=== PATIENT | female | born 1965 | race Caucasian/White ===

== ENCOUNTER 2016-04-12 20:24 | Emergency (ER) | payer SELFPAY ==
--- NOTE | 2016-04-12 21:31 | ER Document Report ---
ED Medical Screen (RME) - General Stated Complaint: RIGHT SIDE FACE PAIN Mode of Arrival: Ambulatory Information source: Patient Notes: Patient complains of right-sided jaw and neck tenderness and swelling. Symptoms started yesterday. Patient complains of difficulty with opening her mouth. hx: Frequent UTIs I have greeted and performed a rapid initial assessment of this patient. A comprehensive ED assessment and evaluation of the patient, analysis of test results and completion of the medical decision making process will be conducted by additional ED providers. TRAVEL OUTSIDE OF THE [place] IN LAST 30 DAYS: No - Related Data Allergies/Adverse Reactions: Sulfa (Sulfonamide Antibiotics) Allergy (Verified 06/24/14 20:23) Past Medical History - Past Medical History Cardiac Medical History: Reports: Hx Hypercholesterolemia, Hx Hypertension GI Medical History: Reports: Hx Gastroesophageal Reflux Disease Past Surgical History: Reports: Hx Hysterectomy, Hx Orthopedic Surgery - Immunizations Hx Diphtheria, Pertussis, Tetanus Vaccination: Yes Physical Exam - Vital signs Vitals: Temp Pulse Resp BP 97.8 F 91 18 111/86 H 04/12/16 21:20 04/12/16 21:20 04/12/16 21:20 04/12/16 21:20 - HEENT Teeth diagram: 1 - Tender swollen area, palpable nodule Course - Vital Signs Vital signs: Temp Pulse Resp BP Pulse Ox 97.8 F 91 18 111/86 H 04/12/16 21:20 04/12/16 21:20 04/12/16 21:20 04/12/16 21:20
[2016-04-13] MEDS ORDERED: HYDROCODONE/ACETAMINOPHEN 5-325 MG 6 TAB/DSPK PO PRN (00:16)
[2016-04-13] MEDS ORDERED: AMOXICILLIN TR/POT CLAVULANATE 500-125 MG TAB PO ONE (00:16)
--- NOTE | 2016-04-13 00:18 | ER Document Report ---
ED General - General Chief Complaint: Jaw Pain Stated Complaint: RIGHT SIDE FACE PAIN Mode of Arrival: Ambulatory Notes: Patient is a 51-year-old female with a past medical history of hypertension who presents with 24 hours of progressively worsening right-sided jaw pain and some mild facial swelling. Describes the pain in her jaws a severe, constant, throbbing pain. Worsened by eating or opening her mouth. Nothing improves the pain and she has been trying naproxen and ibuprofen at home. No history of similar symptoms in the past. Denies any associated fever or constitutional symptoms. She has not seen her primary care physician or dentist regarding today's concerns. Denies any difficulty breathing or swallowing. TRAVEL OUTSIDE OF THE [place] IN LAST 30 DAYS: No - Related Data Allergies/Adverse Reactions: Sulfa (Sulfonamide Antibiotics) Allergy (Verified 06/24/14 20:23) Past Medical History - General Information source: Patient - Social History Smoking Status: Current Every Day Smoker Frequency of alcohol use: None Drug Abuse: None Family History: Reviewed & Not Pertinent Patient has suicidal ideation: No Patient has homicidal ideation: No - Past Medical History Cardiac Medical History: Reports: Hx Hypercholesterolemia, Hx Hypertension Renal/ Medical History: Denies: Hx Peritoneal Dialysis GI Medical History: Reports: Hx Gastroesophageal Reflux Disease Past Surgical History: Reports: Hx Hysterectomy, Hx Orthopedic Surgery - Immunizations Hx Diphtheria, Pertussis, Tetanus Vaccination: Yes Review of Systems - Review of Systems Notes: Constitutional: Negative for fever. HENT: Positive for right-sided facial swelling Eyes: Negative for visual changes. Cardiovascular: Negative for chest pain. Respiratory: Negative for shortness of breath. Gastrointestinal: Negative for abdominal pain, vomiting or diarrhea. Genitourinary: Negative for dysuria. Musculoskeletal: Negative for back pain. Skin: Negative for rash. Neurological: Negative for headaches, weakness or numbness. 10 point ROS negative except as marked above and in HPI. Physical Exam - Vital signs Vitals: Temp Pulse Resp BP 97.8 F 91 18 111/86 H 04/12/16 21:20 04/12/16 21:20 04/12/16 21:20 04/12/16 21:20 Interpretation: Normal Notes: PHYSICAL EXAMINATION: GENERAL: Well-appearing, well-nourished and in no acute distress. HEAD: Atraumatic, normocephalic. EYES: Pupils equal round and reactive to light, extraocular movements intact, sclera anicteric, conjunctiva are normal. ENT: nares patent, oropharynx clear without exudates. Moist mucous membranes. Poor dentition. Mild right buccal mucosal swelling NECK: Normal range of motion, there is right-sided submandibular lymphadenopathy LUNGS: Breath sounds clear to auscultation bilaterally and equal. No wheezes rales or rhonchi. HEART: Regular rate and rhythm without murmurs ABDOMEN: Soft, nontender, normoactive bowel sounds. No guarding, no rebound. No masses appreciated. EXTREMITIES: Normal range of motion, no pitting or edema. No cyanosis. NEUROLOGICAL: No focal neurological deficits. Moves all extremities spontaneously and on command. PSYCH: Normal mood, normal affect. SKIN: Warm, Dry, normal turgor, no rashes or lesions noted. Course - Re-evaluation Re-evalutation: 04/13/16 00:18 Presentation is most consistent with likely an infected tooth. Patient does have some mild right-sided facial swelling and submandibular and anterior cervical lymphadenopathy. Airway is patent. Vitals within normal limits. Patient is able swallow without any difficulty. Patient will be started on antibiotics and a limited number of pain medications. I've instructed to follow -up with dentistry as earliest ability for definitive management. At this time will discharge with return precautions and follow-up recommendations. Verbal discharge instructions given a the bedside and opportunity for questions given. Medication warnings reviewed. Patient is in agreement with this plan and has verbalized understanding of return precautions and the need for primary care follow-up in the next 24-72 hours. - Vital Signs Vital signs: Temp Pulse Resp BP Pulse Ox 98.3 F 68 20 122/78 98 04/13/16 00:44 04/13/16 00:44 04/13/16 00:44 04/13/16 00:44 04/13/16 00:44 Discharge - Discharge Clinical Impression: Right facial pain Condition: Good Disposition: HOME, SELF-CARE Additional Instructions: You were seen for facial swelling and this is likely due to a dental infection. It is very important that you follow-up with a dentist for definitive care. Please return if you develop fever greater than 101, worsening of the swelling in your face, vomiting, difficulty breathing or swallowing, or any other symptoms that are concerning to you. For pain you should take ibuprofen 600 mg every 6 hours as needed. Take the antibiotics as prescribed. Use the [place] you were sent home with for severe pain that is not controlled by ibuprofen. Prescriptions: Hydrocodone/Acetaminophen [[place] 5-325 mg Tablet] 1 tab PO Q4HP PRN #10 tablet PRN Reason: Amox Tr/Potassium Clavulanate [Augmentin 875-125 Tablet] 1 tab PO BID 10 Days Forms: Return to Work Referrals: DAREK ARTHUR PA-C [Primary Care Provider] - Follow up in 3-5 days
[2016-04-13 00:46] VITALS: BP 122/78
== END 2016-04-13 00:44 | disposition home or self-care (01) ==
LOC: ER 20:24
DX: R51 Headache (principal); R68.84 Jaw pain; F17.210 Nicotine dependence, cigarettes, uncomplicated; I10 Essential (primary) hypertension
CPT/HCPCS: 99283

== ENCOUNTER 2017-01-28 10:58 | Emergency (ER) | payer SELFPAY ==
[2017-01-28] MEDS ORDERED: RINGERS SOLUTION,LACTATED 1,000 ML IV ONE (11:08)
--- NOTE | 2017-01-28 11:09 | ER Document Report ---
ED General Pain - General Chief Complaint: Pain Stated Complaint: HAND/FOOT PAIN Time Seen by Provider: 01/28/17 11:07 Notes: She also had nausea vomiting last Thursday. Loose stools last week and. TRAVEL OUTSIDE OF THE [place] IN LAST 30 DAYS: No - HPI Notes: 51 years old female with a history of on and off low potassium, had a week ago episode of nausea and vomiting which subsided again last Thursday had a another episode of nausea and vomiting for a few hours. Currently has no nausea vomiting abdominal pain or cramps. Denies any diarrhea or constipation now. But developed cramps over the upper limbs and therefore concerned that her potassium might be low, presented to the ED. Denied any fever chills or other constitutional symptoms. - Related Data Allergies/Adverse Reactions: Sulfa (Sulfonamide Antibiotics) Allergy (Verified 01/28/17 11:00) Past Medical History - General Information source: Patient Cannot obtain history due to: Other - Hypokalemia, GERD - Social History Smoking Status: Current Some Day Smoker Cigarette use (# per day): Yes Smoking Education Provided: Yes Frequency of alcohol use: Rare Drug Abuse: Marijuana Lives with: Family Family History: Reviewed & Not Pertinent. denies: None, Arthritis, CAD, COPD, CVA, DM, Hyperlipidemia, Hypertension, Malignancy, Thyroid Disfunction, Other - Past Medical History Cardiac Medical History: Reports: Hx Hypercholesterolemia, Hx Hypertension Pulmonary Medical History: Denies: None, Hx Asthma, Hx Bronchitis, Hx COPD, Hx Pneumonia, Hx Intubation , Hx Respiratory Failure, Hx Sleep Apnea, Hx Tuberculosis, Other Renal/ Medical History: Denies: Hx Peritoneal Dialysis GI Medical History: Reports: Hx Gastroesophageal Reflux Disease Past Surgical History: Reports: Hx Hysterectomy, Hx Orthopedic Surgery - Immunizations Hx Diphtheria, Pertussis, Tetanus Vaccination: Yes Review of Systems - Review of Systems -: Yes ROS unobtainable due to patient's medical condition Constitutional: denies: No symptoms reported, See HPI, Chills, Diaphoresis, Fever, Malaise, Weakness, Other, Weight gain, Weight loss, Recent illness EENT: denies: No symptoms reported, See HPI, Eye pain, Eye discharge, Blurred vision, Tearing, Double vision, Ear pain, Ear discharge, Nose pain, Nose congestion, Nose discharge, Sinus pressure, Sinus discharge, Throat pain, Difficulty swallowing, Throat swelling, Mouth pain, Mouth swelling, Dental problem, Vertigo, Other Cardiovascular: denies: No symptoms reported, See HPI, Chest pain, Palpitations , Heart racing, Orthopnea, Dyspnea, Syncope, Dizziness, Lightheaded, Edema, Other, Paroxysmal Nocturnal Dysp Respiratory: denies: No symptoms reported, See HPI, Cough, Hurts to breathe, Hemoptysis, Short of breath, Sputum, Stridor, Wheezing, Other Genitourinary: denies: No symptoms reported, See HPI, Burning, Dysuria, Discharge, Frequency, Flank pain, Hematuria, Incontinence, Pain, Urgency, Retention, Other Female Genitourinary: denies: No symptoms reported, See HPI, Last menstrual period, , Post menopausal, Heavy/abnormal periods, Irregular period, Vaginal bleeding, Vaginal discharge, Vaginal odor, Painful intercourse, Other Musculoskeletal: denies: No symptoms reported, See HPI, Back pain, Gout, Joint pain, Joint swelling, Muscle pain, Muscle stiffness, Neck pain, Deformity, Leg swelling, Ankle swelling, Other Physical Exam - Vital signs Vitals: Resp 18 01/28/17 10:59 Interpretation: Normal - Notes Notes: General exam: Alert oriented 3, appears well, not in any acute distress, body habitus------. HEENT: Normocephalic atraumatic pupils were equal reactive to light extraocular muscles were within normal range. Neck is supple no JVD no lymphadenopathy. Oral mucosa-not erythematous, no lesions noted no tonsillar enlargement. Chest no lesions, nontraumatic, nontender. No deformity Lungs: Bilaterally clear breath sounds no rales or wheezing, no adventitial sounds, no dullness on percussion. Cardiovascular system: Normal S1-S2 no murmurs, no gallop. Regular rhythm. No peripheral edema over the lower extremities. Gastrointestinal: Normal appearance, positive bowel sounds in all 4 quadrants, no Hepatosplenomegaly, no obvious masses, no obvious abdominal bruit. No horseshoe dullness. Inguinal region: No masses or obvious inguinal hernia noted Genitourinary: Rectal exam: Course - Vital Signs Vital signs: Temp Pulse Resp BP Pulse Ox 98.2 F 78 18 140/88 H 96 01/28/17 11:01 01/28/17 11:01 01/28/17 11:01 01/28/17 11:01 01/28/17 11:01 - Laboratory Result Diagrams: 01/28/17 11:32 01/28/17 11:32 Laboratory results interpreted by me: 01/28/17 01/28/17 11:32 11:32 Hct 35.5 L Seg Neutrophils % 41.0 L Lymphocytes % 46.4 H Potassium 3.1 L Carbon Dioxide 34 H BUN 5 L Calcium 7.7 L - Transfer of Care Notes: 01/28/17 11:20 Given lactated Ringer IV 01/28/17 13:10 Patient was given IV lactated Ringer as well as 40 mEq of potassium chloride. With clinical improvement she is being discharged home. Discharge - Discharge Clinical Impression: Hypokalemia, Dehydration, moderate Disposition: HOME, SELF-CARE Instructions: Hypokalemia ([facility]), Dehydration ([facility]) Prescriptions: Potassium Chloride 20 meq PO BID #10 tablet.er
[2017-01-28 11:41] LABS: ABSOLUTE BASOPHILS # (AUTO) 0.1 10^3/uL (0.0-0.2); ABSOLUTE EOSINOPHILS # (AUTO) 0.2 10^3/uL (0.0-0.6); ABSOLUTE LYMPHOCYTES (AUTO) 3.4 10^3/uL (0.5-4.7); ABSOLUTE MONOCYTES (AUTO) 0.6 10^3/uL (0.1-1.4); BASOPHILS % (AUTO) 1.6 % (0-2); EOSINOPHILS % (AUTO) 2.4 % (0-6); HEMATOCRIT 35.5 % (36.0-47.0); HEMOGLOBIN 12.6 g/dL (12.0-15.5); HGB HCT DIFFERENCE 2.3; LYMPHOCYTES % (AUTO) 46.4 % (13-45); MEAN CORPUSCULAR HEMOGLOBIN 31.4 pg (27.0-33.4); MEAN CORPUSCULAR HGB CONC 35.4 g/dL (32.0-36.0); MEAN CORPUSCULAR VOLUME 89 fl (80-97); MONOCYTES % (AUTO) 8.6 % (3-13); RED BLOOD COUNT 4.01 10^6/uL (3.72-5.28); RED CELL DISTRIBUTION WIDTH 13.2 % (11.5-14.0); WHITE BLOOD COUNT 7.4 10^3/uL (4.0-10.5)
[2017-01-28 11:54] LABS: ALANINE AMINOTRANSFERASE 24 U/L (9-52); ALBUMIN 3.9 g/dL (3.5-5.0); ALKALINE PHOSPHATASE 62 U/L (38-126); ANION GAP 10 (5-19); ASPARTATE AMINO TRANSFERASE 17 U/L (14-36); BILIRUBIN,DIRECT 0.3 mg/dL (0.0-0.4); BILIRUBIN,TOTAL 0.3 mg/dL (0.2-1.3); BLOOD UREA NITROGEN 5 mg/dL (7-20); CALCIUM 7.7 mg/dL (8.4-10.2); CARBON DIOXIDE 34 mmol/L (22-30); CHLORIDE 99 mmol/L (98-107); CREATININE RESULT 0.64 mg/dL (0.52-1.25); GLUCOSE 97 mg/dL (75-110); POTASSIUM 3.1 mmol/L (3.6-5.0); TOTAL PROTEIN 6.6 g/dL (6.3-8.2)
[2017-01-28] MEDS ORDERED: POTASSIUM CHLORIDE 10 MEQ TABLET.SA PO ONE (12:09)
[2017-01-28 14:31] VITALS: BP 126/80
== END 2017-01-28 14:29 | disposition home or self-care (01) ==
LOC: ER 10:58
DX: E87.6 Hypokalemia (principal); E86.0 Dehydration; R11.2 Nausea with vomiting, unspecified; R19.7 Diarrhea, unspecified
CPT/HCPCS: 99284; 96360; 36415; 85025; 80053; J7120

== ENCOUNTER 2018-07-04 16:32 | Emergency (ER) | payer SELFPAY ==
[2018-07-04] MEDS ORDERED: IPRATROPIUM/ALBUTEROL 0.5-2.5 MG/3 ML AMPUL NEB ONE (16:46)
--- NOTE | 2018-07-04 16:49 | ER Document Report ---
ED Medical Screen (RME) - General Chief Complaint: Abdominal Pain Stated Complaint: NAUSEA Time Seen by Provider: 07/04/18 16:43 Primary Care Provider: DAREK ARTHUR PA-C [Primary Care Provider] - Follow up as needed TRAVEL OUTSIDE OF THE [place] IN LAST 30 DAYS: No - HPI Notes: 07/04/18 16:47 Patient is a 53-year-old female with a history of GERD and tobacco abuse who presents complaining of epigastric/right upper quadrant abdominal pain with nausea, no vomiting. Symptoms began yesterday. Patient states that she is also had a semi-productive cough over the past 2 weeks. Pain does not radiate. She is is otherwise able to eat and drink without difficulty, but does have a decreased p.o. intake. She is urinating normally and having normal bowel movements the last one this morning. Denies [place], fever, neck pain, URI, CP, SOB, or rash. I have treated and performed a rapid initial assessment of this patient. A comprehensive ED assessment and evaluation of the patient, analysis of test results and completion of medical decision making process will be conducted by additional ED providers. PHYSICAL EXAMINATION: GENERAL: Well-appearing, well-nourished and in no acute distress. A&Ox4. Answers questions appropriately. LUNGS: Breath sounds clear to auscultation bilaterally and equal. No wheezes rales or rhonchi. HEART: Regular rate and rhythm without murmurs, rubs, gallops. ABDOMEN: Soft, nondistended abdomen. No guarding, no rebound. Normal bowel sounds present. No CVA tenderness bilaterally. + mild epigastric/RUQ tenderness (cannot elicit thorough abd exam w/o table, however). Extremities: No cyanosis, clubbing, or edema b/l. NEUROLOGICAL: Normal speech, normal gait. PSYCH: Normal mood, normal affect. - Related Data Allergies/Adverse Reactions: Sulfa (Sulfonamide Antibiotics) Allergy (Verified 07/04/18 16:33) Past Medical History - Past Medical History Cardiac Medical History: Reports: Hx Hypercholesterolemia, Hx Hypertension Pulmonary Medical History: Denies: Hx Asthma, Hx Bronchitis, Hx COPD, Hx Pneumonia, Hx Intubation, Hx Respiratory Failure, Hx Sleep Apnea, Hx Tuberculosis Renal/ Medical History: Denies: Hx Peritoneal Dialysis GI Medical History: Reports: Hx Gastroesophageal Reflux Disease Past Surgical History: Reports: Hx Hysterectomy, Hx Orthopedic Surgery - Immunizations Hx Diphtheria, Pertussis, Tetanus Vaccination: Yes Physical Exam - Vital signs Vitals: Temp Pulse Resp BP Pulse Ox 98.5 F 89 18 134/74 H 96 07/04/18 16:36 07/04/18 16:36 07/04/18 16:36 07/04/18 16:36 07/04/18 16:36 Course - Vital Signs Vital signs: Temp Pulse Resp BP Pulse Ox 98.5 F 89 18 134/74 H 96 07/04/18 16:36 07/04/18 16:36 07/04/18 16:36 07/04/18 16:36 07/04/18 16:36 Doctor's Discharge - Discharge Referrals: DAREK ARTHUR PA-C [Primary Care Provider] - Follow up as needed
[2018-07-04 17:18] LABS: ABSOLUTE LYMPHOCYTES (AUTO) 1.8 10^3/uL (0.5-4.7); ABSOLUTE MONOCYTES (AUTO) 0.9 10^3/uL (0.1-1.4); ABSOLUTE NEUT (AUTO) 5.9 10^3/uL (1.7-8.2); BASOPHILS % (AUTO) 0.2 % (0-2); EOSINOPHILS % (AUTO) 0.3 % (0-6); HEMATOCRIT 42.6 % (36.0-47.0); HEMOGLOBIN 14.5 g/dL (12.0-15.5); LYMPHOCYTES % (AUTO) 20.5 % (13-45); MEAN CORPUSCULAR VOLUME 91 fl (80-97); MONOCYTES % (AUTO) 10.6 % (3-13); PLATELET COUNT 426 10^3/uL (150-450); RED BLOOD COUNT 4.68 10^6/uL (3.72-5.28); RED CELL DISTRIBUTION WIDTH 13.1 % (11.5-14.0); SEGMENTED NEUTROPHILS % (AUTO) 68.4 % (42-78); TOTAL CELLS COUNTED % (AUTO) 100 %; WHITE BLOOD COUNT 8.6 10^3/uL (4.0-10.5)
[2018-07-04 17:34] LABS: ALANINE AMINOTRANSFERASE 19 U/L (9-52); ALBUMIN 4.8 g/dL (3.5-5.0); ALKALINE PHOSPHATASE 63 U/L (38-126); ANION GAP 14 (5-19); ASPARTATE AMINO TRANSFERASE 17 U/L (14-36); BILIRUBIN,DIRECT 0.3 mg/dL (0.0-0.4); BILIRUBIN,TOTAL 0.4 mg/dL (0.2-1.3); BLOOD UREA NITROGEN 15 mg/dL (7-20); CALCIUM 9.8 mg/dL (8.4-10.2); CARBON DIOXIDE 26 mmol/L (22-30); CHLORIDE 100 mmol/L (98-107); GLUCOSE 113 mg/dL (75-110); LIPASE 62.1 U/L (23-300); POTASSIUM 3.2 mmol/L (3.6-5.0); SODIUM 140.1 mmol/L (137-145); TOTAL PROTEIN 8.4 g/dL (6.3-8.2)
--- NOTE | 2018-07-04 17:46 | RADIOLOGY REPORT (SQ) ---
EXAM DESCRIPTION: U/S ABDOMEN LIMITED W/O DOP COMPLETED DATE/TIME: 07/04/2018 5:27 pm REASON FOR STUDY: RUQ/epigastric pain COMPARISON: None. TECHNIQUE: Dynamic and static grayscale images acquired of the abdomen and recorded on PACS. Additio nal selected color Doppler and spectral images recorded. LIMITATIONS: None. FINDINGS: PANCREAS: No masses. Visualized pancreatic duct normal caliber. LIVER: No masses. Echotexture normal. LIVER VASCULATURE: Normal directional flow of the main portal vein and hepatic veins. GALLBLADDER: No stones. Normal wall thickness. No pericholecystic fluid. ULTRASOUND-DETECTED DOMINGUEZ'S SIGN: Negative. INTRAHEPATIC DUCTS AND COMMON DUCT: CBD and intrahepatic ducts normal caliber. No filling defects. INFERIOR VENA CAVA: Normal flow. AORTA: No aneurysm. RIGHT KIDNEY: Echogenic stone with shadowing in the upper pole measuring 7 mm. Slight renal pelvic dilatation. PERITONEAL AND RIGHT PLEURAL SPACE: No ascites or effusions. OTHER: No other significant findings. IMPRESSION: Right nephrolithiasis. Minimal right hydronephrosis. Otherwise unremarkable right uppe r quadrant ultrasound. TECHNICAL DOCUMENTATION: JOB ID: [id number] [employer]- All Rights Reserved Reading location - IP/workstation name: [email or web address]
[2018-07-04 17:59] LABS: APPEARANCE,URINE SLIGHTLY-CLOUDY; BILIRUBIN,URINE NEGATIVE (NEGATIVE); COLOR,URINE YELLOW; GLUCOSE, URINE NEGATIVE (NEGATIVE); KETONES,URINE NEGATIVE (NEGATIVE); LEUKOCYTE ESTERASE,URINE TRACE (NEGATIVE); NITRITE,URINE NEGATIVE (NEGATIVE); PROTEIN,URINE NEGATIVE (NEGATIVE); UROBILINOGEN,URINE NEGATIVE mg/dL (<2.0)
--- NOTE | 2018-07-04 18:09 | RADIOLOGY REPORT (SQ) ---
EXAM DESCRIPTION: CHEST 2 VIEWS COMPLETED DATE/TIME: 07/04/2018 5:44 pm REASON FOR STUDY: cough, wheeze COMPARISON: 2014. NUMBER OF VIEWS: Two view. TECHNIQUE: Frontal and lateral radiographic views of the chest acquired. LIMITATIONS: None. FINDINGS: LUNGS AND PLEURA: No opacities, masses or pneumothorax. No pleural effusion. Attenuated bl ood vessels and flattened josefina-diaphragms. MEDIASTINUM AND HILAR STRUCTURES: No masses. No contour abnormalities. HEART AND VASCULAR STRUCTURES: Heart normal in size and contour. No evidence for failure. BONES: No acute findings. HARDWARE: None in the chest. OTHER: No other significant finding. IMPRESSION: COPD. NO ACUTE RADIOGRAPHIC FINDING IN THE CHEST. TECHNICAL DOCUMENTATION: JOB ID: [id number] [employer]- All Rights Reserved Reading location - IP/workstation name: [email or web address]
[2018-07-04] MEDS ORDERED: POTASSIUM CHLORIDE 10 MEQ CAPSULE.ER PO ONE (18:51)
--- NOTE | 2018-07-04 19:15 | ER Document Report ---
ED General - General Chief Complaint: Abdominal Pain Stated Complaint: NAUSEA Time Seen by Provider: 07/04/18 16:43 Primary Care Provider: DAREK ARTHUR PA-C [Primary Care Provider] - Follow up as needed Notes: Patient is a 53-year-old female with a past medical history of hypokalemia, COPD, presents with 2 to 3 weeks of general fatigue. Patient states that her symptoms started approximately 3 weeks ago after she developed a sore throat and subsequently developed a cough and symptoms consistent with an upper respiratory infection by her history. She states that the fatigue is her only concern at this time. States that she feels so tired that she can hardly get dressed in the morning. States that she is struggling to continue to perform her duties at work due to her level of fatigue. This is a severe symptom by her report and nothing seems to improve or worsen the symptoms. States she is sleeping appr opriately at night. She denies any history of similar symptoms in the past. She has not seen her primary care doctor regarding today's concerns. She denies adamantly any shortness of breath, chest pain, vomiting, pain in the arms, jaw or back. She does complain of some intermittent stabbing pains in her epigastric that come and go none present currently. These are mild, stabbing pains that last for several seconds and then resolve. She states that she has had approximately 6 pounds of weight loss in 6 months. She does currently smoke. TRAVEL OUTSIDE OF THE [place] IN LAST 30 DAYS: No - Related Data Allergies/Adverse Reactions: Sulfa (Sulfonamide Antibiotics) Allergy (Verified 07/04/18 16:33) Past Medical History - General Information source: Patient - Social History Smoking Status: Current Every Day Smoker Frequency of alcohol use: None Drug Abuse: None Lives with: Family Family History: Reviewed & Not Pertinent. denies: None, Arthritis, CAD, COPD, CVA, DM, Hyperlipidemia, Hypertension, Malignancy, Thyroid Disfunction, Other Patient has suicidal ideation: No Patient has homicidal ideation: No - Past Medical History Cardiac Medical History: Reports: Hx Hypercholesterolemia, Hx Hypertension Pulmonary Medical History: Denies: Hx Asthma, Hx Bronchitis, Hx COPD, Hx Pneumonia, Hx Intubation, Hx Respiratory Failure, Hx Sleep Apnea, Hx Tuberculosis Renal/ Medical History: Denies: Hx Peritoneal Dialysis GI Medical History: Reports: Hx Gastroesophageal Reflux Disease Past Surgical History: Reports: Hx Hysterectomy, Hx Orthopedic Surgery - Immunizations Hx Diphtheria, Pertussis, Tetanus Vaccination: Yes Review of Systems - Review of Systems Notes: Constitutional: Negative for fever. HENT: Negative for sore throat. Eyes: Negative for visual changes. Cardiovascular: Negative for chest pain. Respiratory: Negative for shortness of breath. Gastrointestinal: Positive for intermittent abdominal pain Genitourinary: Negative for dysuria. Musculoskeletal: Negative for back pain. Skin: Negative for rash. Neurological: Negative for headaches, weakness or numbness. 10 point ROS negative except as marked above and in HPI. Physical Exam - Vital signs Vitals: Temp Pulse Resp BP Pulse Ox 98.5 F 89 18 134/74 H 96 07/04/18 16:36 07/04/18 16:36 07/04/18 16:36 07/04/18 16:36 07/04/18 16:36 Interpretation: Normal Notes: PHYSICAL EXAMINATION: GENERAL: Well-appearing, well-nourished and in no acute distress. HEAD: Atraumatic, normocephalic. EYES: Pupils equal round and reactive to light, extraocular movements intact, sclera anicteric, conjunctiva are normal. ENT: nares patent, oropharynx clear without exudates. Moist mucous membranes. NECK: Normal range of motion, supple without lymphadenopathy LUNGS: Breath sounds clear to auscultation bilaterally and equal. No wheezes rales or rhonchi. HEART: Regular rate and rhythm without murmurs ABDOMEN: Soft, nontender, normoactive bowel sounds. No guarding, no rebound. No masses appreciated. EXTREMITIES: Normal range of motion, no pitting or edema. No cyanosis. NEUROLOGICAL: No focal neurological deficits. Moves all extremities spontaneously and on command. PSYCH: Normal mood, normal affect. SKIN: Warm, Dry, normal turgor, no rashes or lesions noted. Course - Re-evaluation Re-evalutation: 07/04/18 18:54 Patient presents with general fatigue and no other specific complaints other than a previous history of sore throat. Considerations include mononucleosis, undiagnosed occult malignancy. Labs unremarkable with exception of mild, chronic hypokalemia. 40 mg of oral potassium has been initiated in the emergency department and I have advised dietary supplementation at home. CT scan of the abdomen and pelvis was obtained for better clarification of possible obstructive nephrolithiasis on the right and to exclude any underlying mass lesion that could be suggestive of malignancy. This is likewise noted to be normal. I have informed patient of her relatively reassuring work-up today, I have advised that she will continue to need outpatient follow-up for consideration of testing for mononucleosis, vitamin D levels, vitamin B12 levels, and hormonal levels. Patient understands this and will follow-up with her primary care physician. At this time will discharge with return precautions and follow-up recommendations. Verbal discharge instructions given a the bedside and opportunity for questions given. Medication warnings reviewed. Patient is in agreement with this plan and has verbalized understanding of return precautions and the need for primary care follow-up in the next 24-72 hours. - Vital Signs Vital signs: Temp Pulse Resp BP Pulse Ox 98.5 F 89 18 134/74 H 96 07/04/18 16:36 07/04/18 16:36 07/04/18 16:36 07/04/18 16:36 07/04/18 16:36 - Laboratory Result Diagrams: 07/04/18 16:59 07/04/18 16:59 Laboratory results interpreted by me: 07/04/18 07/04/18 16:59 16:59 Potassium 3.2 L Glucose 113 H Total Protein 8.4 H Urine Blood SMALL H Ur Leukocyte Esterase TRACE H - Diagnostic Test Radiology reviewed: Image reviewed, Reports reviewed Radiology results interpreted by me: 07/04/18 20:31 Chest x-ray: No acute infiltrate or pneumothorax - EKG Interpretation by Me Additional EKG results interpreted by me: 07/04/18 20:31 Sinus rhythm, rate 96. No ST elevations or depressions. QTC is 455. Discharge - Discharge Clinical Impression: Intermittent upper abdominal pain, Hypokalemia Fatigue Qualifiers: Fatigue type: unspecified Qualified Code(s): R53.83 - Other fatigue Condition: Good Disposition: HOME, SELF-CARE Additional Instructions: He was seen today due to concerns of severe fatigue. Your work-up has been reassuring today with no abnormal findings except low potassium. Please continue to take potassium supplementation at home as prescribed as well as supplement potassium rich foods in your diet. As we discussed, you do need a more symptom evaluation through your primary care physician. I would advise laboratories including vitamin B12 levels, vitamin D levels, thyroid studies, and screening for mononucleosis. Please return to the emergency department immediately if you develop worsening of your symptoms, new symptoms, fever greater than 101 F, persistent vomiting, chest pain, shortness of breath, pass out, or have any other symptoms that are worrisome to you. Referrals: DAREK ARTHUR PA-C [Primary Care Provider] - Follow up in 3-5 days
--- NOTE | 2018-07-04 20:22 | RADIOLOGY REPORT (SQ) ---
EXAM DESCRIPTION: CT ABDOMEN PELVIS WITH IV CONTRAST COMPLETED DATE/TME: 07/04/2018 18:51 CLINICAL HISTORY: 53 years, Female, right hydro, ab pain COMPARISON: None. TECHNIQUE: Contrast enhanced CT of the abdomen/pelvis was performed. Coronal and sagittal reformations were created. Images stored on PACS. All CT scanners at this facility use dose modulation, iterative reconstruction, and/or weight based dosing when appropriate to reduce radiation dose to as low as reasonably achievable (ALARA). [facility]: Dose Right [facility]: CareDose [facility]: Dose Right [facility]: Teradose 4D [facility]: [employer] LIMITATIONS: None. FINDINGS: Limited evaluation of the lower chest reveals a band of opacity about the left lower lobe, indicating atelectasis or scar. A tiny pericardial effusion is noted. Geographic area of hypodensity is noted about the left hepatic lobe adjacent to the falciform ligament, either indicating focal fatty infiltration or third inflow artifact. The liver otherwise enhances normally. The spleen, pancreas, gallbladder, and both adrenal glands appear normal. 4 mm calcific density is noted about the upper pole of the right kidney. Both kidneys otherwise enhance symmetrically. No obvious hydronephrosis or hydroureter is identified. Calcific densities projecting immediately adjacent to the anterior aspect of the right psoas musculature on image 56 of series 3 likely indicate phleboliths as the ureter is just medial to this location. The urinary bladder is well distended and shows no suspicious finding. The small and large bowel appear normal in caliber without areas of focal wall thickening. No evidence of bowel obstruction. The appendix is not well visualized; however, no pericecal inflammatory changes are appreciated. Calcifications are evident about the abdominal aorta and proximal iliac vessels. No suspicious lymphadenopathy or drainable fluid collections are appreciated. Bone windows show no destructive osseous lesions. IMPRESSION: No definite acute abnormality within the abdomen or pelvis. Nonobstructive right nephrolithiasis. Calcific densities located immediately adjacent to the anterior aspect of the right psoas musculature presumably represent phleboliths. Urolithiasis is considered less likely as the ureter appears to course just medial to this location. TECHNICAL DOCUMENTATION: Quality ID # [id number]: Final reports with documentation of one or more dose reduction techniques (e.g., Automated exposure control, adjustment of the mA and/or kV according to patient size, use of iterative reconstruction technique) copyright 2011 [employer]- All Rights Reserved
[2018-07-04 20:57] VITALS: BP 115/64
== END 2018-07-04 21:10 | disposition home or self-care (01) ==
LOC: ER 16:32
DX: E87.6 Hypokalemia (principal); R53.83 Other fatigue; R10.13 Epigastric pain; J44.9 Chronic obstructive pulmonary disease, unspecified; I10 Essential (primary) hypertension; J02.9 Acute pharyngitis, unspecified; R05 Cough; Z88.2 Allergy status to sulfonamides; F17.200 Nicotine dependence, unspecified, uncomplicated
CPT/HCPCS: 94640; 99284; 36415; 83690; 85025; 80053; 81001; 71046; 76705; 74177; J7620

== ENCOUNTER 2019-07-11 06:42 | Day surgery (SDC) | payer SELFPAY ==
[2019-07-11] MEDS ORDERED: PROPOFOL INJ 200 MG/20 ML VIAL IV ONE (07:59)
[2019-07-11] MEDS ORDERED: LIDOCAINE 2% INJ-PF (20 MG/ML) 10 ML AMPUL ONE (07:59)
[2019-07-11] MEDS ORDERED: DIPHENHYDRAMINE HCL 50 MG/ML VIAL IV PRN (08:30)
[2019-07-11] MEDS ORDERED: ONDANSETRON HCL INJ/PF 4 MG/2 ML SDV IV PRN (08:30)
[2019-07-11] MEDS ORDERED: PROMETHAZINE HCL INJ 25 MG/1 ML VIAL IV PRN (08:30)
[2019-07-11 09:34] VITALS: BP 106/64
--- NOTE | 2019-07-11 11:26 | Operative Report ---
Operative Report DATE OF SURGERY: 07/11/19 Operative Report: The risk, benefits and alternatives of the procedure including the risk of bleeding, perforation requiring surgery were explained to the patient in detail and informed consent is obtained. Patient is taken to the operating room and placed in left, lateral decubital position. Timeout was called. Propofol medication is administered. Rectal examination is done which did not reveal any masses, tears or fissures. An Olympus videoscope was inserted into the patient's rectum. Scope was then carefully advanced all the way to the cecum. Cecum was identified by the usual anatomical landmarks including the ileocecal valve as well as the appendiceal office. Photodocumentation is obtained. Scope was then sequentially pulled back via the various segments of the colon including the ascending colon, hepatic flexure, transverse colon, splenic flexure, descending colon finding to the rectosigmoid portions of the colon. Retroflexion maneuver is performed. PREOPERATIVE DIAGNOSIS: Blood in stool. POSTOPERATIVE DIAGNOSIS: Sigmoid colon polyp removed via snare polypectomy. colon Inflammation in the ascending colon area status post biopsy. Internal hemorrhoids OPERATION: Colonoscopy with snare polypectomy. Colonoscopy with biopsy SURGEON: CALIXTO VILLARREAL ANESTHESIA: LMAC TISSUE REMOVED OR ALTERED: As noted above. COMPLICATIONS: None. ESTIMATED BLOOD LOSS: None. INTRAOPERATIVE FINDINGS: As noted above. PROCEDURE: Patient tolerated the procedure well. No immediate postprocedure complications are noted. Patient is discharged in good condition. Discharge date 07/11/2019. Discharge diet: Regular. Discharge activity: Regular. 2 to 3-week follow-up to discuss findings. Patient is instructed to call the office or proceed to the emergency room should there be any further problems or questions. Wait on the pathology. Surveillance colonoscopy 3 to 5 years
== END 2019-07-11 09:35 | disposition home or self-care (01) ==
LOC: OROUT 06:42
PROVIDERS: ATTEND Internal Medicine Gastroenterology
DX: D12.5 Benign neoplasm of sigmoid colon (principal); K64.8 Other hemorrhoids; K52.9 Noninfective gastroenteritis and colitis, unspecified; K62.5 Hemorrhage of anus and rectum; F17.210 Nicotine dependence, cigarettes, uncomplicated; Z79.899 Other long term (current) drug therapy; Z88.2 Allergy status to sulfonamides
CPT/HCPCS: 45380; 45385; 88305 ×2; 00811; J2704; J3490; 811